=== PATIENT | female | born 1980 | race Caucasian/White ===

== ENCOUNTER 2018-02-06 07:34 | Emergency (ER) | payer OTHER ==
[~2018-02-06] VITALS: Ht 170.2 cm; Wt 78.9 kg
[2018-02-06 07:42] VITALS: Ht 170.2 cm; Wt 78.9 kg
[2018-02-06 10:04] VITALS: BP 126/34
== END 2018-02-06 10:04 | disposition home or self-care (01) ==
LOC: ED 07:34
DX: J10.1 Influenza due to other identified influenza virus with other respiratory manifestations (principal); Z98.890 Other specified postprocedural states
CPT/HCPCS: J1885; J7030

== ENCOUNTER 2018-05-12 15:04 | Emergency (ER) | payer OTHER ==
[~2018-05-12] VITALS: Ht 170.2 cm; Wt 80.7 kg
[2018-05-12 15:11] VITALS: BP 104/69; Ht 170.2 cm; Wt 80.7 kg
== END 2018-05-12 17:07 | disposition home or self-care (01) ==
LOC: ED 15:04
DX: S93.601A Unspecified sprain of right foot, initial encounter (principal); X58.XXXA Exposure to other specified factors, initial encounter; Y93.89 Activity, other specified; Y92.89 Other specified places as the place of occurrence of the external cause; Y99.8 Other external cause status